=== PATIENT | male | born 1970 | race Caucasian/White ===

== ENCOUNTER 2023-05-18 16:29 | Emergency (ER) | payer BC, SELFPAY ==
[2023-05-18 16:40] VITALS: BP 117/73; PULSE 78; RESP 18; TEMP 36.3; O2SAT 100
--- NOTE | 2023-05-18 16:54 | ED.EAR ---
HPI - Ear Problem General Chief complaint: Ear Stated complaint: Lt Ear Irritation Time Seen by Provider: 05/18/23 16:44 Source: patient and RN notes reviewed Mode of arrival: ambulatory Limitations: no limitations History of Present Illness HPI Narrative: Patient presents today complaining of left ear pain x1 week and clear drainage x2 days. Reports pain has been worsening over the past 2 days. No decreased hearing. Currently rates his pain 5/10 and has tried no [id number] treatment for symptoms prior to arrival. Patient just spent 5 days in [place] and returned 2 days ago, but states he had symptoms prior to going on vacation. Denies excessive swimming or water in his ear. Related Data Allergies Allergy/AdvReac Type Severity Reaction Status Date / Time No Known Allergies Allergy Mild Verified 05/18/23 16:41 Review of Systems Review of Systems: CONSTITUTIONAL: Denies body aches, fever, chills, or sweats. EYES: Denies visual changes, redness, or discharge. ENT: Denies rhinorrhea, congestion, sore throat. + left ear pain CARDIOVASCULAR: Denies chest pain, palpitations, or edema. RESPIRATORY: Denies cough or dyspnea. GASTROINTESTINAL: Denies abdominal pain, nausea, vomiting, or diarrhea. GENITOURINARY: Denies dysuria or hematuria. SKIN: Denies rash, itching, or wounds. MUSCULOSKELETAL: Denies back pain, joint pain, or myalgia. NEUROLOGIC: Denies headache, numbness, tingling, or weakness. PSYCH: Denies depression or anxiety. [facility] Family History Family History Grandparent Cerebrovascular accident Carcinoma of colon Family history of lung cancer Social History Social History Smoking status: Never smoker Alcohol intake: current Comments At time of signature, I have reviewed and agree with nursing past medical, surgical, social and family history unless otherwise noted. Please see nursing chart for further information. There is no relevant family history pertinent to the presenting complaint Exam Narrative: GENERAL: Well-appearing, well-nourished, and in no acute distress. HEAD: Normocephalic, atraumatic. EYES: EOMI. No redness or drainage. Conjunctivae normal. ENT: Mucous membranes pink and moist. Nares clear. No rhinorrhea. TMs normal bilaterally. Right canal normal. Left ear canal without edema, but is mildly erythematous. No drainage noted. NECK: Normal AROM. CHEST: No respiratory distress. EXTREMITIES: Normal range of motion. No edema. SKIN: Warm, dry, no rash. Capillary refill normal. Normal skin turgor. NEURO: No focal deficits. Alert and oriented x3. Gait steady. PSYCH: Normal affect. No signs of depression or anxiety. Course Course Level of Care: Express Care Visit Vital Signs Vital signs: Vital Signs Temperature 97.3 F L 05/18/23 16:40 Pulse Rate 78 05/18/23 16:40 Respiratory Rate 18 05/18/23 16:40 Blood Pressure 117/73 05/18/23 16:40 Pulse Oximetry 100 05/18/23 16:40 Oxygen Delivery Room Air 05/18/23 16:40 Temperature 97.3 F L 05/18/23 16:40 Pulse Rate 78 05/18/23 16:40 Respiratory Rate 18 05/18/23 16:40 Blood Pressure 117/73 05/18/23 16:40 Pulse Oximetry 100 05/18/23 16:40 Oxygen Delivery Room Air 05/18/23 16:40 Reviewed Medical Decision Making MDM Narrative Medical decision making narrative: Exam consistent with otitis externa. Will treat with ciprofloxacin drops. Anticipatory guidance given. Differential Diagnosis Differential Diagnosis: Otitis media, otitis externa, ruptured TM, serous otitis, eustachian tube dysfunction, cerumen impaction Vital Signs Vital Signs: Vital Signs Temperature 97.3 F L 05/18/23 16:40 Pulse Rate 78 05/18/23 16:40 Respiratory Rate 18 05/18/23 16:40 Blood Pressure 117/73 05/18/23 16:40 Pulse Oximetry 100 05/18/23 16:40 Oxygen Delivery Room A
== END 2023-05-18 17:01 | disposition home or self-care (01) ==
PROVIDERS: Emergency Provider Nurse Practitioner; PCP Internal Medicine
DX: H60.502 Unspecified acute noninfective otitis externa, left ear (principal); K21.9 Gastro-esophageal reflux disease without esophagitis
CPT/HCPCS: 99213; G0463

== ENCOUNTER 2023-07-04 11:43 | Outpatient (NON) | payer BC, SELFPAY | END 2023-07-04 11:44 | disposition home or self-care (01) | PROVIDERS: PCP Internal Medicine; Visit Provider Nurse Practitioner | DX: D22.9 Melanocytic nevi, unspecified (principal) | CPT/HCPCS: 88305 ==